=== PATIENT | female | born 1985 | race Caucasian/White ===

== ENCOUNTER 2020-07-22 12:48 | Emergency (ER) | payer SELFPAY ==
[~2020-07-22] VITALS: Ht 165.1 cm; Wt 80.0 kg
--- NOTE | 2020-07-22 13:04 | NUR ---
TRIAGE: RIGHT SIDED FLANK PAIN BEGAN YESTERDAY
--- NOTE | 2020-07-22 13:23 | NUR ---
PT HAS HAD RT FLANK PAIN SINCE YESTERDAY. HX OF KIDNEY STONES. STATES SHE FEELS LIKE IT IS A KIDNEY STONE. SHARP PAIN 10/04. WALKED TO ROOM. ATTACHED TO MONITORS. A&oX4. RESTING IN BED.
[2020-07-22] MEDS ORDERED: HYDROmorphone 1 MG/ML, 1ML INJ IV ONE ×2 (14:00→16:30)
[2020-07-22] MEDS ORDERED: ONDANSETRON 2MG/ML, 2ML IVPush ONE ×2 (14:00→16:30)
[2020-07-22] MEDS ORDERED: HYDROmorphone 1 MG/ML, 1ML INJ ONE ×2 (14:01→16:35)
[2020-07-22] MEDS ORDERED: ONDANSETRON 2MG/ML, 2ML ONE ×2 (14:01→16:35)
[2020-07-22 14:21] LABS: MICROSCOPIC INDICATED
--- NOTE | 2020-07-22 14:53 | NUR ---
PT LYING IN BED. CURRENTLY HAVE BLOOD DRAWN. TOLERATING DILAUDID AND ZOFRAN WELL.
--- NOTE | 2020-07-22 14:55 | NUR ---
BED IN LOW POSITION, CALL LIGHT WITHIN REACH, ATTACHED TO MONITORS. VSS. PT IN NAD
[2020-07-22 15:06] LABS: BASOPHILS % (AUTO) 1 % (0-1); EOSINOPHILS % (AUTO) 1 % (1-7); LYMPHOCYTES % (AUTO) 17 % (22-44); MD NO; MEAN CORPUSCULAR HEMOGLOBIN 31.2 pg (27.0-34.8); MEAN CORPUSCULAR HGB CONC 34.6 g/dL (32.4-35.8); MEAN PLATELET VOLUME 8.3 fL (7.4-10.4); MONOCYTES % (AUTO) 7 % (2-9); NEUTROPHILS % (AUTO) 75 % (42-75); PLATELET COUNT 279 x10^3/uL (130-400); RED BLOOD COUNT 4.93 x10^6/uL (3.82-5.3); RED CELL DISTRIBUTION WIDTH 13.2 % (9.6-15.2)
[2020-07-22 15:18] LABS: ALBUMIN 4.6 g/dL (3.4-5.0); ANION GAP 7 mmol/L (5-15); CALCIUM 9.4 mg/dL (8.5-10.1); CHLORIDE 112 mmol/L (98-107); CREATININE 0.64 mg/dL (0.55-1.02)
--- NOTE | 2020-07-22 15:43 | NUR ---
PT OFF UNIT IN IMAGING.
--- NOTE | 2020-07-22 16:01 | NUR ---
PT RESTING IN BED ON HER PHONE, ATTACHED TO MONITORS, VSS. BED IN LOW POSITION, CALL LIGHT WITHIN REACH.
[2020-07-22 16:48] VITALS: BP 103/72
== END 2020-07-22 16:51 | disposition home or self-care (01) ==
LOC: ED 16:45
DX: R31.0 Gross hematuria (principal); R11.2 Nausea with vomiting, unspecified; Z88.8 Allergy status to other drugs, medicaments and biological substances
CPT/HCPCS: 36415; 74176; 80048; 81001; 82040; 84703; 85025; 87086; 96374; 96375; 96376; 99285; J1170; J2405